=== PATIENT | male | born 1940 | race Caucasian/White ===

== ENCOUNTER 2016-11-03 06:02 | Day surgery (SDC) | payer MEDICARE ==
--- NOTE | 2016-10-30 08:55 | HP ---
CHIEF COMPLAINT: History of colonic polyps. HISTORY OF PRESENT ILLNESS: Mr. Mcgee is a 76-year-old male who presents for repeat colonoscopy. His last colonoscopy was in 2011. He had a tubular adenoma removed at that time. He presents now for repeat colonoscopy. He denies any symptoms referable to his bowels, specifically abdominal pain, rectal bleeding, or changes in his bowel habits. The patient also has a family history of colon cancer in his brother. PAST MEDICAL HISTORY: 1. Supraventricular tachycardia diagnosed in September of 2008. 2. Hyperlipidemia. 3. Hypertension. 4. History of colonic polyps. 5. Family history of colon cancer. 6. History of kidney stones. 7. Gout. 8. Type 2 diabetes, diagnosed in June of 2001. 9. Seasonal allergies. 10. Osteoarthritis, especially of the knees. PAST SURGICAL HISTORY: 1. Shoulder surgery in 1967. 2. Arthroscopy of the right knee in 1998. 3. Arthroscopy of the left knee by Dr. Darby in February of 2006. 4. Colonoscopy in 2003 times , 2008 and 2011. CURRENT MEDICATIONS: 1. Glimepiride. 2. Lipitor. 3. Metoprolol. 4. Victoza. 5. Indomethacin p.r.n. ALLERGIES: 1. INVOKANA, which caused recurrent balanitis. 2. KENALOG, which made him "feel drunk." 3. SOME NSAIDS, causing increase in his liver function tests in 2004, but he has taken Indocin for gout without problem. FAMILY HISTORY: Father at 75 from surgical complications. Mother at 87 from old age. She did have diabetes mellitus. A brother at age 70 from colon cancer. SOCIAL HISTORY: He is retired. 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 He was in the [employer] in the late 1950s. 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 He is . He has three years college education. He quit smoking cigarettes in 1995. He smoked half a pack per day for approximately 35 years, giving him a 70 pack year history. He does drink alcohol, approximately a 6-pack per month. REVIEW OF SYSTEMS: Negative except as in the history of present illness. PHYSICAL EXAMINATION: VITAL SIGNS: Blood pressure 138/80. Weight 219. Pulse 84. GENERAL: He is awake, alert, in no acute distress. HEENT: Unremarkable. NECK: Supple. LUNGS: Clear. CARDIOVASCULAR: Regular rate and rhythm without appreciable murmurs. ABDOMEN: Soft, nontender. RECTAL: Deferred until time of colonoscopy. EXTREMITIES: Without edema. NEUROLOGIC: Nonfocal. ASSESSMENT: 1. History of colonic polyps. 2. Family history of colon cancer in his brother. PLAN: Colonoscopy on 11/03/16. #[id number]
[2016-11-03] MEDS ORDERED: LACTATED RINGERS 1,000 ML ONE (06:38)
[2016-11-03] MEDS ORDERED: LIDOCAINE 1% 10 ML VIAL INJ ONE (07:00)
[2016-11-03] MEDS ORDERED: PROPOFOL 200 MG/20 ML VIAL IV ONE (07:00)
[2016-11-03] MEDS ORDERED: fentaNYL CITRATE INJ 50 MCG/ML AMP ONE (07:17)
[2016-11-03] MEDS ORDERED: MIDAZOLAM INJ 5 MG/5 ML VIAL ONE (07:17)
--- NOTE | 2016-11-03 08:53 | OP ---
DATE OF PROCEDURE: 11/03/16 PREOPERATIVE DIAGNOSIS: 1. Family history of colon cancer in a brother. 2. Personal history of colonic polyps. POSTOPERATIVE DIAGNOSIS: 1. 0.25 by 0.25 cm cecal polyp, biopsied times 1 to obliteration. 2. 0.25 by 0.25 cm proximal ascending colon polyp, biopsied times 1 to obliteration. 3. External hemorrhoids. PROCEDURE: 1. Colonoscopy. SURGEON: Yoshi Lees MD. ESTIMATED BLOOD LOSS: Less than 1 cc. COMPLICATIONS: No immediate complications. ANESTHESIA: Propofol 300 mg, 1 mg of Versed and 50 mcg of fentanyl administered intravenously by Jeremie Prince CRNA, using monitored anesthesia care. TECHNIQUE: After informed consent was obtained from the patient, the patient was taken to the Endoscopy Suite and placed in the left lateral decubitus position. Vital signs were monitored throughout the procedure. Supplemental oxygen via facemask was administered throughout the procedure. After adequate conscious sedation was obtained, digital rectal examination was performed, which showed external hemorrhoids and a mildly enlarged prostate without suspicious nodules. The Olympus colonoscope was then advanced into the patient' s rectum and up through the sigmoid, descending, transverse and ascending colon to the level of the cecum. There was some looping around the hepatic flexure, but this resolved with pulling out partially and reinsertion. The usual cecal landmarks were identified. The terminal ileum was entered and photographed times two. There was a very small, as mentioned in postoperative diagnosis, cecal polyp that was biopsied times one to obliteration. Upon slow withdrawal, another small polyp was noted in the proximal ascending colon and also removed. They were both submitted to Pathology. The colonoscope was then slowly withdrawn taking care to try to visualize all alvarez of the colon in 360 degree fashion. I feel confident that no large polyps (greater than 1 cm) were missed. There were no diverticula. The overall bowel prep was quite good. There was some liquid stool proximally. This was suctioned out as best possible. The scope was retroflexed upon itself in the rectum. Additional stool was suctioned out. Photograph was taken. The colonoscope was then unretroflexed and a small amount of air was suctioned out. The colonoscope was removed from the patient. The patient tolerated the procedure well and was waking up at the conclusion of the procedure. PLAN: Followup endoscopy in five years if his medical condition permits. #[id number] [facility]
[2016-11-03 08:54] VITALS: BP 123/85; TEMP 97.7; O2SAT 100
== END 2016-11-03 08:50 | disposition home or self-care (01) ==
LOC: AMB 06:02
PROVIDERS: ATTEND Family Medicine
DX: Z12.11 Encounter for screening for malignant neoplasm of colon (principal); D12.0 Benign neoplasm of cecum; D12.2 Benign neoplasm of ascending colon; K64.4 Residual hemorrhoidal skin tags; E78.5 Hyperlipidemia, unspecified; I10 Essential (primary) hypertension; E11.9 Type 2 diabetes mellitus without complications; M17.0 Bilateral primary osteoarthritis of knee; Z86.010 Personal history of colon polyps; Z80.0 Family history of malignant neoplasm of digestive organs; Z87.891 Personal history of nicotine dependence; Z88.6 Allergy status to analgesic agent; Z88.8 Allergy status to other drugs, medicaments and biological substances; Z79.899 Other long term (current) drug therapy
CPT/HCPCS: 00810; 36416; 45380; 82948; 88305; J2250; J3010; J3490; J7120

== ENCOUNTER → 2017-06-04 | Outpatient (CLI) | payer MEDICARE | END | disposition home or self-care (01) | LOC: GMAL 10:00 | PROVIDERS: ATTEND Family Medicine | DX: D51.3 Other dietary vitamin B12 deficiency anemia (principal); Z12.5 Encounter for screening for malignant neoplasm of prostate; R53.83 Other fatigue; E55.9 Vitamin D deficiency, unspecified | CPT/HCPCS: 82306; 82607; 84443; 84550; G0103 ==

== ENCOUNTER → 2018-01-07 | Outpatient (CLI) | payer MEDICARE | LOC: GMAL 10:57 | PROVIDERS: ATTEND Family Medicine | DX: D51.3 Other dietary vitamin B12 deficiency anemia (principal); R53.83 Other fatigue; E55.9 Vitamin D deficiency, unspecified ==

== ENCOUNTER → 2018-07-04 | Outpatient (CLI) | payer MEDICARE | LOC: GMAL 10:33 | PROVIDERS: ATTEND Family Medicine | DX: Z12.5 Encounter for screening for malignant neoplasm of prostate (principal) ==

== ENCOUNTER → 2018-09-27 | Outpatient (CLI) | payer MEDICARE | LOC: LAB.O 15:31 | PROVIDERS: ATTEND Internal Medicine Interventional Cardiology | DX: R94.39 Abnormal result of other cardiovascular function study (principal) ==

== ENCOUNTER → 2019-07-07 | Outpatient (CLI) | payer MEDICARE | LOC: GMAL 10:39 | PROVIDERS: ATTEND Family Medicine | DX: M10.9 Gout, unspecified (principal); E78.49 Other hyperlipidemia; E11.9 Type 2 diabetes mellitus without complications; I10 Essential (primary) hypertension ==

== ENCOUNTER → 2020-01-12 | Outpatient (CLI) | payer MEDICARE | LOC: GMAL 10:21 | PROVIDERS: ATTEND Family Medicine | DX: Z12.5 Encounter for screening for malignant neoplasm of prostate (principal); I10 Essential (primary) hypertension; E78.49 Other hyperlipidemia; E11.9 Type 2 diabetes mellitus without complications ==

== ENCOUNTER → 2020-07-13 | Outpatient (CLI) | payer MEDICARE | LOC: GMAL 14:49 | PROVIDERS: ATTEND Family Medicine | DX: R53.82 Chronic fatigue, unspecified (principal); E78.49 Other hyperlipidemia; I10 Essential (primary) hypertension; E11.9 Type 2 diabetes mellitus without complications ==